=== PATIENT | male | born 1980 | race African-American/Black ===

== ENCOUNTER 2016-06-08 20:49 | Emergency (ER) | payer MEDICARE, MEDICAID ==
[~2016-06-08] VITALS: Ht 170.2 cm; Wt 69.0 kg
[~2016-06-08 20:49] MED LIST: ESOM2.5S PO; QUET25TA PO; [UNRECOGNIZED DRUG - REMARK]
[2016-06-08] MEDS ORDERED: MORPHINE SULFATE 4 MG/ML CPJ (NOT FOR IM USE) IV STA (21:41)
[2016-06-08] MEDS ORDERED: FAMOTIDINE 20MG/2ML VIAL IV STA (21:41)
[2016-06-08] MEDS ORDERED: SODIUM CHLORIDE 0.9% 1,000 ML IV ONE (21:41)
[2016-06-08] MEDS ORDERED: PANTOPRAZOLE SODIUM 40 MG/VIAL IV STA (21:41)
[2016-06-08 22:45] LABS: BASOPHILS % 0.8 % (0.0-2.0); HEMATOCRIT. 44.4 % (42.0-52.0); HEMOGLOBIN 15.4 g/dL (14.0-18.0); HEMOGLOBIN. 15.4 g/dL (14.0-18.0); LYMPHOCYTES % 12.3 % (20.0-50.0); MEAN CORPUSCULAR HEMOGLOBIN 30.5 pg (28.0-32.0); MEAN CORPUSCULAR HGB CONC 34.8 g/dL (31.0-37.0); MEAN CORPUSCULAR VOLUME 87.8 fL (80.0-94.0); MEAN PLATELET VOLUME 7.9 fl (7.4-10.4); MONOCYTES % 5.4 % (2.0-8.0); NEUTROPHILS % 81.5 % (40.0-76.0); PLATELET 246 x1000/uL (130-400); RED BLOOD CELL COUNT 5.06 mill/uL (4.7-6.1); RED CELL DISTRIBUTION WIDTH 13.1 % (11.6-14.6); WHITE BLOOD COUNT 7.8 x1000/uL (4.5-11.0)
[2016-06-08 22:47] LABS: CHLORIDE 95 mEq/L (98-107)
[2016-06-08 22:49] LABS: INR 1.1; PROTHROMBIN TIME 11.6 sec
[2016-06-08 22:55] LABS: ALANINE AMINOTRANSFERASE 26 IU/L (13-61); ALBUMIN 4.4 g/dL (3.4-5.0); ANION GAP 21; CALCIUM 9.3 mg/dL (8.5-10.1); CARBON DIOXIDE 27 mEq/L (21-32); INDEX HEMOLYSI 1 (1-3); INDEX ICTERIC 2 (1-4); INDEX LIPEMIC 1 (1-3); LIPASE 81 IU/L (73-393); UREA NITROGEN BLOOD 18 mg/dL (7-21); eGFR > 60 mL/min (>60)
[2016-06-09 01:09] VITALS: BP 160/93
== END 2016-06-09 02:44 | disposition home or self-care (01) ==
LOC: ER 21:27
DX: K29.20 Alcoholic gastritis without bleeding (principal); M19.90 Unspecified osteoarthritis, unspecified site; Z79.899 Other long term (current) drug therapy
CPT/HCPCS: 36415; 80053; 83690; 85018; 85025; 85610; 86850; 86900; 86901; 96374; 96375; 99284; C9113; J2270; J3490; J7030

== ENCOUNTER 2016-06-10 09:24 | Emergency (ER) | payer MEDICARE, MEDICAID ==
[~2016-06-10] VITALS: Ht 167.6 cm; Wt 60.0 kg
[2016-06-10] MEDS ORDERED: IBUPROFEN 600MG TABLET PO STA (10:04)
[2016-06-10 11:41] VITALS: BP 123/79
== END 2016-06-10 11:52 | disposition home or self-care (01) ==
LOC: ER 09:29
DX: S09.90XA Unspecified injury of head, initial encounter (principal); J45.909 Unspecified asthma, uncomplicated; M19.90 Unspecified osteoarthritis, unspecified site; W20.8XXA Other cause of strike by thrown, projected or falling object, initial encounter; Y93.55 Activity, bike riding; Y99.8 Other external cause status; Y92.89 Other specified places as the place of occurrence of the external cause
CPT/HCPCS: 70450; 99284